=== PATIENT | male | born 1960 | race Caucasian/White ===

== ENCOUNTER → 2022-03-09 11:08 | Outpatient (BNVA) | payer OTHER, SELFPAY | PROVIDERS: Visit Provider Podiatrist Foot & Ankle Surgery | DX: G57.62 Lesion of plantar nerve, left lower limb (principal); M77.52 Other enthesopathy of left foot and ankle | CPT/HCPCS: 64455; 73630; 99203 ==

== ENCOUNTER → 2022-03-18 09:16 | Outpatient (BNVA) | payer OTHER, SELFPAY | PROVIDERS: Visit Provider Student in an Organized Health Care Education/Training Program | DX: M76.30 Iliotibial band syndrome, unspecified leg (principal); M25.562 Pain in left knee | CPT/HCPCS: 73560; 73565 ==